=== PATIENT | female | born 1975 | race Caucasian/White ===

== ENCOUNTER → 2018-06-16 | Outpatient (CLI) | payer MEDICARE, MEDICAID | LOC: COL.PUL 09:45 | DX: J45.909 Unspecified asthma, uncomplicated (principal) | CPT/HCPCS: J7674 ==

== ENCOUNTER → 2018-10-27 | Outpatient (REF) | LOC: ZMSC 10:34 | DX: Z01.89 Encounter for other specified special examinations (principal) ==